=== PATIENT | male | born 1990 | race African-American/Black ===

== ENCOUNTER 2022-12-12 18:06 | Emergency (ER) | payer SELFPAY ==
[2022-12-12] MEDS ORDERED: Ondansetron ODT 4 MG TAB ONE (18:33)
== END 2022-12-12 18:42 | disposition home or self-care (01) ==
LOC: BURERS 18:06
DX: T50.991A Poisoning by other drugs, medicaments and biological substances, accidental (unintentional), initial encounter (principal)
CPT/HCPCS: 99283; Q0162